=== PATIENT | female | born 1930 | race Caucasian/White ===

== ENCOUNTER 2016-11-05 10:52 | Outpatient (CLI) | payer MEDICARE ==
[2013-08-29 11:20] VITALS: BP 185/101
[2016-11-05 11:24] LABS: BASOPHILS % 0.4 (0.0-1.5); EOSINOPHILS % 4.1 % (0.0-6.8); LYMPHOCYTES # 1.1 # k/uL (0.6-4.0); MEAN CORPUSCULAR HEMOGLOBIN 29.6 pg (28.0-34.0); MONOCYTES # 0.4 # k/uL (0.0-0.9); MONOCYTES % 6.4 % (0.0-11.0); NEUTROPHILS # 4.4 # k/uL (1.4-7.7)
[2016-11-05 11:46] LABS: eGFR (African) 42; eGFR (Non-African) 35
== END 2016-11-05 10:53 ==
LOC: LAB 10:52
PROVIDERS: ATTEND Internal Medicine Cardiovascular Disease
DX: I25.10 Atherosclerotic heart disease of native coronary artery without angina pectoris (principal); I50.32 Chronic diastolic (congestive) heart failure
CPT/HCPCS: 36415; 80053; 84443; 85025; 85651

== ENCOUNTER 2016-11-09 09:00 | Emergency (ER) | payer MEDICARE ==
--- NOTE | 2016-11-09 09:46 | ED Physician Documentation ---
General Adult - HISTORIAN Historian: patient, other (grand-daughter) - HPI Stated Complaint: Bleeding to Nail on Foot Chief Complaint: General Adult Further Comments: yes (86 year old female patient presents with bleeding from wound bed of left great toe nail. Patient had nail removed due to infection by Dr Jo. Patient states she has not been able to get the bleeding to stop since last night. Patient is on Eliquis and Asa.) - ROS CONST: no problems EYES/ENT: none CVS/RESP: none GI/: none MS/SKIN/LYMPH: none NEURO/PSYCH: denies: headache, fainting, dizziness, tingling, numbness, difficulty walking, difficulty with speech, anxiety, depression, other - PAST HX Past History: A-Fib, hypertension Allergies/Adverse Reactions: Allergies Allergy/AdvReac Type Severity Reaction Status Date / Time adhesive tape Allergy Unknown Verified 08/29/13 11:05 amitriptyline [Amitriptyline] Allergy Unknown Verified 08/29/13 11:05 iron Allergy Unknown Verified 08/29/13 11:05 latex [Latex] Allergy Unknown Verified 08/29/13 11:05 metoclopramide Allergy Unknown Verified 08/29/13 11:05 [Metoclopramide] morphine Allergy Unknown Verified 08/29/13 11:05 oxycodone [Oxycodone] Allergy Unknown Verified 08/29/13 11:05 propoxyphene HCl Allergy Unknown Verified 08/29/13 11:05 [From Darvon] Home Medications: Ambulatory Orders Medication Instructions Recorded Apixaban [Eliquis] 2.5 mg PO u2 04/23/16 Atorvastatin Calcium 20 mg PO DAILY u2 04/23/16 - SOCIAL HX Smoking History: non-smoker - FAMILY HX Family History: No - VITAL SIGNS Vital Signs: Vital Signs Temp Pulse Resp BP Pulse Ox 97 F L 72 16 145/76 99 11/09/16 09:00 11/09/16 09:00 11/09/16 09:00 11/09/16 09:00 11/09/16 09:00 - REVIEWED ASSESSMENTS Nursing Assessment Reviewed: Yes Vitals Reviewed: Yes Progress - Progress Progress: Wound cleaned by RN, silver nitrate to oozing area. Pressure held for 10 minutes, hemostasis achieved. Patient up to bathroom, no bleeding. Reviewed discharge instructions. Verbalized understanding, instructed to hold pressure if bleeding restarts General Adult Physical Exam - PHYSICAL EXAM GENERAL APPEARANCE: mild distress EENT: HERIBERTO RESPIRATORY: no resp distress, chest non-tender, breath sounds normal CVS: reg rate & rhythm, heart sounds normal, equal pulses, no murmur, no gallop , PMI nml, no JVD, no friction rub, 24 SKIN: warm/dry, pallor, other (Left great toe nail bed with oozing from proximal nail bed area, medial aspect. ) EXTREMITIES: non-tender, normal range of motion, no edema NEURO: oriented X3, CN's nml as tested, motor nml, sensation nml, mood/affect nml Discharge Clincal Impression: Bleeding from wound, NAIL BED BLEEDING Referrals: Kvng Bolanos MD [Primary Care Provider] - 2 Days Additional Instructions: If the toe starts to bleed again - hold FIRM pressure, non-stop for 10-15 minutes. Do not soak the toe in water today - you may shower or bathe tomorrow. Keep a dressing on the toe during the day and when you are out of the house. You may leave it open to air at night when you sleeping. Continue ALL of your medications. Continue your Eliquis and aspirin. Home Medications: Ambulatory Orders Apixaban [Eliquis] 2.5 mg PO u2 04/23/16 Atorvastatin Calcium 20 mg PO DAILY u2 04/23/16 Condition: Stable Disposition: 01 HOME, SELF-CARE Decision to Admit: NO Decision Time: 09:41
[2016-11-09 10:09] VITALS: BP 138/68
== END 2016-11-09 10:05 | disposition home or self-care (01) ==
LOC: ED 09:00
DX: T81.89XA Other complications of procedures, not elsewhere classified, initial encounter (principal)
CPT/HCPCS: 99282; 99283

== ENCOUNTER 2016-12-25 10:26 | Outpatient (CLI) | payer MEDICARE ==
[2016-12-25 10:42] LABS: LYMPHOCYTES # 0.8 # k/uL (0.6-4.0); MEAN CORPUSCULAR HEMOGLOBIN 28.6 pg (28.0-34.0); MONOCYTES # 0.3 # k/uL (0.0-0.9); NEUTROPHILS # 5.7 # k/uL (1.4-7.7)
[2016-12-25 11:12] LABS: eGFR (African) 30; eGFR (Non-African) 25
[2016-12-25 12:44] LABS: APPEARANCE,URINE Clear (CLEAR); COLOR,URINE Yellow (YELLOW); OCCULT BLOOD,URINE Negative (NEGATIVE); PH URINE 5.5 (5.0 - 8.0)
--- NOTE | 2016-12-25 15:03 | Diagnostic Imaging Report ---
[facility] [id number] [facility] [address] [place], [place]. [address] Report Submission Date: Dec 25, 2016 11:12:12 AM CDT Patient Study Name: ANDRÉS REESE Date: Dec 25, 2016 10:40:39 AM CDT Modality Type: CT\SR Gender: F Description: CT BRAIN W/O CONTRAST : 28 Institution: [facility] Physician LEISA BARRAGAN EXAMINATION: COMPUTED TOMOGRAPHY SCAN OF THE HEAD WITHOUT CONTRAST HISTORY: Mental status changes, fall. TECHNIQUE: Computed tomographic images were performed without contrast from the skull base to the vertex. FINDINGS: Scattered bilateral white matter hypodensity is present, consistent with gliosis. Mild cerebral atrophy is present. The lateral ventricles are mildly dilated. No hemorrhage or edema-producing mass. The fourth ventricle is midline. Mucosal thickening is present in bilateral maxillary sinuses. No skull fracture. The mastoid air cells are well developed and well aerated. IMPRESSION: 1. Mild cerebral atrophy and white matter gliosis, consistent with microvascular angiopathy. 2. No acute cerebral pathology. 3. Sinus disease. Electronically signed on Dec 25, 2016 11:12:12 AM CDT by: Brody Bender [facility] CENTERLuis M
== END 2016-12-25 10:27 ==
LOC: LAB 10:26
PROVIDERS: ATTEND Physician Assistant
DX: R41.82 Altered mental status, unspecified (principal)
CPT/HCPCS: 36415; 70450; 80053; 81002; 85025

== ENCOUNTER 2016-12-27 12:07 | Inpatient (IN) | payer MEDICARE ==
[2016-12-27] MEDS ORDERED: IPRATROPIUM/ALBUTEROL SULFATE 3 ML AMPUL.NEB NEB ONE ×2 (12:47→17:34)
[2016-12-27 12:53] VITALS: BMI 28.1
[2016-12-27] MEDS: IPRATROPIUM/ALBUTEROL SULFATE 3 ML AMPUL.NEB NEB SCH ×3 (12:57→22:08)
[2016-12-27 13:30] LABS: BASOPHILS % 0.1 (0.0-1.5); EOSINOPHILS % 0.3 % (0.0-6.8); MEAN CORPUSCULAR HEMOGLOBIN 28.6 pg (28.0-34.0); MONOCYTES % 2.8 % (0.0-11.0); NEUTROPHILS # 6.4 # k/uL (1.4-7.7)
[2016-12-27] MEDS ORDERED: FUROSEMIDE 40 MG TABLET PO ONE (14:00)
[2016-12-27] MEDS: FUROSEMIDE 40 MG TABLET PO SCH ×2 (14:01→14:02)
[2016-12-27] MEDS ORDERED: SIMVASTATIN 40 MG TABLET ONE (14:15)
[2016-12-27] MEDS ORDERED: APIXABAN 2.5 MG TABLET PO ONE (14:15)
[2016-12-27] MEDS ORDERED: CARVEDILOL 12.5 MG TABLET PO ONE ×4 (14:15→21:01)
[2016-12-27] MEDS ORDERED: GABAPENTIN 100 MG CAPSULE ONE (14:16)
[2016-12-27] MEDS ORDERED: NORMAL SALINE ADD-VANTAGE 50 ML IV ONE (17:08)
[2016-12-27] MEDS ORDERED: cefTRIAXone SODIUM ADVANTAGE 1 GM VIAL.PORT IV ONE (17:08)
[2016-12-27] MEDS: CARVEDILOL 12.5 MG TABLET PO SCH (17:50)
[2016-12-27] MEDS ORDERED: AZITHROMYCIN 250 MG in 0.9 % SODIUM CHLORIDE 250 ML IV SCH (18:00)
[2016-12-27] MEDS ORDERED: cefTRIAXone SODIUM 1 GM in 0.9 % SODIUM CHLORIDE 50 ML IV SCH (18:00)
--- NOTE | 2016-12-27 18:38 | Diagnostic Imaging Report ---
[facility]/MED SURG [facility] [id number] [facility] [address] [place], [place]. [address] Report Submission Date: Dec 27, 2016 4:16:56 PM CDT Patient Study Name: ANDRÉS REESE Date: Dec 27, 2016 3:07:03 PM CDT Modality Type: CR Gender: F Description: CHEST : 28 Institution: [facility] Physician: [facility] WING/MED SURG 2 views of the chest History: CXR, COUGH, DYSPNEA, HYPOXIA FOR ABOUT 2 WEEKS (Hx) / COUGH, DYSPNEA, HYPOXIA Findings: Comparison: September 19, 2016 Cardiomegaly is present. Left chest wall cardiac pacemaker has leads terminating in the right atrium and right ventricle There has been interval development of opacity at the right lung base which obscures the right heart border and the diaphragm. Aorta is tortuous and calcified. Lower thoracic and upper lumbar spine fusion hardware is again noted , degenerative changes are noted at shoulders Impression: 1. Right basilar consolidation with moderate right pleural effusion, recommend followup to resolution 2. Cardiomegaly. Left basilar atelectasis Electronically signed on Dec 27, 2016 4:16:56 PM CDT by: Mirian ZARCO
[2016-12-27] MEDS ORDERED: AZITHROMYCIN 500 MG VIAL IV ONE (19:19)
[2016-12-27] MEDS ORDERED: 0.9 % SODIUM CHLORIDE 250 ML IV ONE (19:19)
[2016-12-27] MEDS ORDERED: SALINE FLUSH 10 ML DISP.SYRIN IVF ONE ×3 (19:20→23:12)
[2016-12-27] MEDS ORDERED: GABAPENTIN 100 MG CAPSULE PO SCH (21:00)
[2016-12-27] MEDS ORDERED: SIMVASTATIN 40 MG TABLET PO SCH (21:00)
[2016-12-27] MEDS: CARVEDILOL 25 MG TABLET PO SCH (21:05)
[2016-12-27] MEDS: APIXABAN 2.5 MG TABLET PO SCH (21:09)
[2016-12-27] MEDS ORDERED: LEVALBUTEROL HCL 1.25 MG/3 ML AMPUL.NEB NEB ONE (21:26)
[2016-12-27] MEDS: LEVALBUTEROL HCL 1.25 MG/3 ML AMPUL.NEB NEB SCH (22:09)
[2016-12-27] MEDS ORDERED: DILTIAZEM HCL 25 MG/ 5ML VIAL ONE (23:11)
[2016-12-27] MEDS ORDERED: DILTIAZEM HCL 25 MG/ 5ML VIAL IVP ONE (23:24)
[2016-12-27] MEDS ORDERED: DILTIAZEM HCL 30 MG TABLET PO ONE (23:42)
[2016-12-27] MEDS: DILTIAZEM HCL 30 MG TABLET PO SCH (23:44)
[2016-12-28] MEDS ORDERED: predniSONE 20 MG TABLET PO ONE (00:10)
[2016-12-28] MEDS ORDERED: APIXABAN 2.5 MG TABLET PO ONE (00:10)
[2016-12-28] MEDS ORDERED: FUROSEMIDE 40 MG TABLET PO ONE (00:10)
[2016-12-28] MEDS ORDERED: AMIODARONE HCL 200 MG TABLET PO ONE (00:10)
[2016-12-28] MEDS ORDERED: ASPIRIN EC 325 MG TABLET.DR ONE (00:10)
[2016-12-28] MEDS ORDERED: IPRATROPIUM/ALBUTEROL SULFATE 3 ML AMPUL.NEB NEB ONE (00:11)
[2016-12-28] MEDS ORDERED: LEVALBUTEROL HCL 1.25 MG/3 ML AMPUL.NEB NEB ONE (00:11)
[2016-12-28] MEDS: FUROSEMIDE 40 MG TABLET PO SCH (06:28)
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
[2016-12-28] MEDS: IPRATROPIUM/ALBUTEROL SULFATE 3 ML AMPUL.NEB NEB SCH ×2 (08:54→09:04)
[2016-12-28] MEDS ORDERED: predniSONE 20 MG TABLET PO SCH (09:00)
[2016-12-28] MEDS ORDERED: ASPIRIN EC 81 MG TABLET.DR PO SCH (09:00)
[2016-12-28] MEDS ORDERED: AMIODARONE HCL 200 MG TABLET PO SCH (09:00)
[2016-12-28] MEDS: LEVALBUTEROL HCL 1.25 MG/3 ML AMPUL.NEB NEB SCH (09:05)
[2016-12-28] MEDS ORDERED: DILTIAZEM HCL 25 MG/ 5ML VIAL IVP ONE (09:20)
[2016-12-28] MEDS: CARVEDILOL 25 MG TABLET PO SCH (09:21)
[2016-12-28] MEDS: APIXABAN 2.5 MG TABLET PO SCH (09:23)
[2016-12-28] MEDS ORDERED: DILTIAZEM HCL 25 MG/ 5ML VIAL ONE (09:28)
[2016-12-28] MEDS ORDERED: DILTIAZEM HCL 30 MG TABLET PO ONE (09:29)
[2016-12-28] MEDS: DILTIAZEM HCL 30 MG TABLET PO SCH (09:31)
[2016-12-28] MEDS ORDERED: SALINE FLUSH 10 ML DISP.SYRIN IVF ONE (09:37)
[2016-12-28 10:42] VITALS: BP 107/50
== END 2016-12-28 10:58 | disposition short-term general hospital (02) | DRG 190 ==
LOC: SOUTH 12:07
PROVIDERS: ADMIT Family Medicine; ATTEND Family Medicine
DX: J44.1 Chronic obstructive pulmonary disease with (acute) exacerbation (principal); J18.9 Pneumonia, unspecified organism; I50.9 Heart failure, unspecified; I48.91 Unspecified atrial fibrillation; R41.82 Altered mental status, unspecified
CPT/HCPCS: 36415; 71020; 80053; 84484; 85025; 93005; J0456; J0696; J3490; J7050; J7614; 99223; 99238; S1016

== ENCOUNTER 2017-05-14 08:43 | Outpatient (CLI) | payer MEDICARE ==
[2017-05-14 09:10] LABS: BASOPHILS % 0.3 (0.0-1.5); EOSINOPHILS % 2.1 % (0.0-6.8); MEAN CORPUSCULAR HEMOGLOBIN 28.4 pg (28.0-34.0); MEAN CORPUSCULAR VOLUME 93.2 fl (80.0-100.0); MONOCYTES % 4.3 % (0.0-11.0); NEUTROPHILS # 6.5 # k/uL (1.4-7.7)
--- NOTE | 2017-05-14 14:44 | Diagnostic Imaging Report ---
SORAIDA [facility] [id number] [address] [facility] [address] [address] Report Submission Date: May 14, 2017 9:20:27 AM CDT Patient Study Name: ANDRÉS REESE Date: May 14, 2017 8:55:25 AM CDT Modality Type: CR Gender: F Description: CHEST : 28 Institution: [facility] Physician: SORAIDA Examination: PA and lateral chest. History: Evaluate lung garcia. Comparison exam: 27 December 2016 Findings: PA lateral chest demonstrate a prominent cardiac silhouette. Tortuosity of the thoracic aorta with vascular calcifications involving the aortic arch. Continued blunting of the right lung base: decreased when compared with the November 2016 examination. Stable parenchymal fullness involving the apical lung garcia. Left costophrenic margin not visualize. Hiatal hernia. Left- sided cardiac pacemaker. Thoracolumbar fixation hardware. Shoulder degenerative changes. Impression: Continued right effusion: decreased in degree when compared with the November 2006 examination. Hiatal hernia. Electronically signed on May 14, 2017 9:20:27 AM CDT by: Israel ZARCO
== END 2017-05-14 08:55 ==
LOC: RAD 08:43
PROVIDERS: ATTEND Family Medicine
DX: I50.9 Heart failure, unspecified (principal); I48.91 Unspecified atrial fibrillation; R06.00 Dyspnea, unspecified; R60.9 Edema, unspecified
CPT/HCPCS: 36415; 71020; 85025